=== PATIENT | male | born 1960 | race Hispanic/Latino ===

== ENCOUNTER 2018-04-22 06:53 | Inpatient (IN) | payer OTHER ==
[~2018-04-22] VITALS: Ht 177.8 cm; Wt 86.2 kg
[2018-04-22] VITALS (21 sets, daily range): BP systolic 130–182; BP diastolic 73–103
[2018-04-22 07:55] LABS: BASOPHILS % (AUTO) 0.5 % (0.0-5.0); EOSINOPHILS % (AUTO) 1.5 % (0.0-8.0); HEMATOCRIT 40.4 % (42-54); LYMPHOCYTES % (AUTO) 6.9 % (21.0-51.0); MEAN CORPUSCULAR HEMOGLOBIN 28.4 pg (27.0-33.0); MEAN CORPUSCULAR HGB CONC 32.5 g/dL (32.0-36.0); MEAN CORPUSCULAR VOLUME 87.3 fL (79-99); MONOCYTES % (AUTO) 7.3 % (3.0-13.0); NEUTROPHILS % (AUTO) 83.8 % (40.0-77.0); PLATELET COUNT (AUTO) 395 K/uL (130-400); RED BLOOD CELL COUNT(AUTO) 4.63 MIL/uL (4.50-6.20); RED CELL DISTRIBUTION WIDTH 13.4 % (11.0-15.5); WHITE BLOOD COUNT (AUTO) 18.1 K/uL (4.8-10.8)
[2018-04-22 08:01] LABS: POTASSIUM 3.4 mmol/L (3.5-5.1)
[2018-04-22 08:12] LABS: CREATININE 0.8 mg/dL (0.5-1.5)
[2018-04-22] MEDS ORDERED: SODIUM CHLORIDE 0.9% 1000ML 1,000 ML IV ONE (08:38)
[2018-04-22] MEDS ORDERED: ZOSYN 3.375GM+NS 50ML 50 ML IV ONE (08:39)
[2018-04-22] MEDS ORDERED: SODIUM CHLORIDE 0.9% 100 ML IV ONE (08:40)
[2018-04-22] MEDS ORDERED: INSULIN HUMULIN R 100 UNIT/ML 3ML ONE ×3 (08:40→17:07)
[2018-04-22] MEDS ORDERED: DEXTROSE 50%-WATER 50 ML DISP.SYRIN IV PRN (09:15)
[2018-04-22] MEDS ORDERED: HYDROCODONE/ACETAMINOPHEN 5/325 MG TAB PO PRN (09:15)
[2018-04-22] MEDS ORDERED: VANCOMYCIN PROTOCOL PER PHARMACY IV SCH (09:15)
[2018-04-22] MEDS: SODIUM CHLORIDE 0.9% 1000ML 1,000 ML IV SCH (09:15)
[2018-04-22] MEDS ORDERED: GLUCAGON 1MG KIT 1 MG ML IM PRN (09:15)
[2018-04-22] MEDS: ZOSYN 3.375GM+NS 50ML 50 ML IV SCH ×2 (09:15→17:02)
[2018-04-22] MEDS ORDERED: ACETAMINOPHEN 325 MG TAB PO PRN (12:15)
[2018-04-22] MEDS: INSULIN R PO SS1/2 SQ SCH ×3 (12:19→22:36)
[2018-04-22] MEDS ORDERED: COMPOUND IV REFRIGERATED 1 EACH IVSOLN MISC PRN (14:00)
[2018-04-22] MEDS: VANCOMYCIN 1.25 GM in SODIUM CHLORIDE 0.9% 250 ML IV SCH (14:43)
[2018-04-22] MEDS ORDERED: LIDOCAINE PF 2% 5ML ABBOJECT ONE (16:10)
[2018-04-22] MEDS ORDERED: MIDAZOLAM HCL 1 MG/ML 2ML VIAL ONE (16:10)
[2018-04-22] MEDS ORDERED: DEXAMETHASONE SOD PHOSPHATE 10MG/ML 1ML VIAL ONE (16:10)
[2018-04-22] MEDS ORDERED: ONDANSETRON HCL 4 MG/2 ML VIAL ONE (16:10)
[2018-04-22] MEDS ORDERED: PROPOFOL 10 MG/ML 20ML VIAL IV ONE (16:10)
[2018-04-22] MEDS ORDERED: ROCURONIUM 10MG/1ML SYR 10 MG/ML ML ONE (16:10)
[2018-04-22] MEDS ORDERED: FENTANYL CITRATE PF 50 MCG/1 ML 2ML VIAL ONE (16:10)
[2018-04-22] MEDS ORDERED: NEOSTIGMINE 5MG/5ML SYR IV ONE (16:10)
[2018-04-22] MEDS ORDERED: BACITRACIN 50,000 UNIT VIAL ONE (16:28)
[2018-04-22] MEDS ORDERED: GLYCOPYRROLATE 1 MG/5 ML SYRINGE ONE (16:44)
[2018-04-22] MEDS ORDERED: CLONIDINE HCL 0.1 MG TABLET PO PRN (18:45)
[2018-04-22] MEDS ORDERED: METOPROLOL TARTRATE 1 MG/ML 5ML VIAL IV PRN (18:45)
[2018-04-22] MEDS ORDERED: MORPHINE SULFATE 4 MG/1ML SYG IVP PRN (19:15)
[2018-04-22] MEDS: METOPROLOL TARTRATE 50 MG TAB PO SCH (22:31)
[2018-04-23] MEDS: ZOSYN 3.375GM+NS 50ML 50 ML IV SCH (01:42)
[2018-04-23] MEDS: SODIUM CHLORIDE 0.9% 1000ML 1,000 ML IV SCH ×2 (03:47→17:56)
[2018-04-23] MEDS: VANCOMYCIN 1.25 GM in SODIUM CHLORIDE 0.9% 250 ML IV SCH ×2 (03:47→14:14)
[2018-04-23 04:29] VITALS: BP 118/73
[2018-04-23 05:25] LABS: BASOPHILS % (AUTO) 0.7 % (0.0-5.0); EOSINOPHILS % (AUTO) 1.5 % (0.0-8.0); HEMATOCRIT 34.6 % (42-54); LYMPHOCYTES % (AUTO) 8.9 % (21.0-51.0); MEAN CORPUSCULAR HEMOGLOBIN 29.6 pg (27.0-33.0); MEAN CORPUSCULAR HGB CONC 34.2 g/dL (32.0-36.0); MEAN CORPUSCULAR VOLUME 86.7 fL (79-99); MONOCYTES % (AUTO) 8.6 % (3.0-13.0); NEUTROPHILS % (AUTO) 80.3 % (40.0-77.0); PLATELET COUNT (AUTO) 397 K/uL (130-400); RED BLOOD CELL COUNT(AUTO) 3.99 MIL/uL (4.50-6.20); RED CELL DISTRIBUTION WIDTH 13.3 % (11.0-15.5); WHITE BLOOD COUNT (AUTO) 21.2 K/uL (4.8-10.8)
[2018-04-23 05:35] LABS: ALBUMIN 1.7 g/dL (3.5-5.0); BILIRUBIN,TOTAL 1.1 mg/dL (0.2-1.0); CREATININE 1.9 mg/dL (0.5-1.5); POTASSIUM 3.9 mmol/L (3.5-5.1); TOTAL PROTEIN, SERUM 6.1 g/dL (6.0-8.3)
[2018-04-23] MEDS: INSULIN R PO SS1/2 SQ SCH ×4 (07:04→21:03)
[2018-04-23 07:51] VITALS: BP 133/68
[2018-04-23 11:38] VITALS: BP 119/62
[2018-04-23] MEDS: METOPROLOL TARTRATE 50 MG TAB PO SCH ×2 (12:35→20:54)
[2018-04-23] MEDS: PANTOPRAZOLE SODIUM 40 MG TABLET.DR PO SCH (12:35)
[2018-04-23] MEDS: ENOXAPARIN SODIUM 40 MG/0.4 ML SYRINGE SQ SCH (12:36)
[2018-04-23 16:26] VITALS: BP 129/79
[2018-04-23 19:57] VITALS: BP 130/76
[2018-04-23 23:02] VITALS: BP 132/78
[2018-04-24 01:56] LABS: BASOPHILS % (AUTO) 0.8 % (0.0-5.0); EOSINOPHILS % (AUTO) 3.4 % (0.0-8.0); MEAN CORPUSCULAR HEMOGLOBIN 28.4 pg (27.0-33.0); MEAN CORPUSCULAR HGB CONC 32.9 g/dL (32.0-36.0); MEAN CORPUSCULAR VOLUME 86.3 fL (79-99); MONOCYTES % (AUTO) 7.9 % (3.0-13.0); NEUTROPHILS % (AUTO) 78.9 % (40.0-77.0); PLATELET COUNT (AUTO) 359 K/uL (130-400); RED BLOOD CELL COUNT(AUTO) 3.94 MIL/uL (4.50-6.20); RED CELL DISTRIBUTION WIDTH 13.1 % (11.0-15.5); WHITE BLOOD COUNT (AUTO) 17.9 K/uL (4.8-10.8)
[2018-04-24 02:21] LABS: ALBUMIN 1.6 g/dL (3.5-5.0); BILIRUBIN,TOTAL 0.6 mg/dL (0.2-1.0); CREATININE 1.8 mg/dL (0.5-1.5); POTASSIUM 3.5 mmol/L (3.5-5.1); TOTAL PROTEIN, SERUM 6.1 g/dL (6.0-8.3)
[2018-04-24] MEDS: VANCOMYCIN 1.25 GM in SODIUM CHLORIDE 0.9% 250 ML IV SCH ×2 (03:18→13:49)
[2018-04-24 03:30] VITALS: BP 124/79
[2018-04-24 03:54] LABS: APPEARANCE,URINE Clear (CLEAR); BILIRUBIN,URINE Negative (NEGATIVE); COLOR,URINE Yellow (YELLOW); GLUCOSE, URINE (UA) >=1000 mg/dL (NEGATIVE); KETONES,URINE Trace mg/dL (NEGATIVE); LEUKOCYTE ESTERASE ,URINE Small (NEGATIVE); NITRATE,URINE Negative (NEGATIVE); OCCULT BLOOD,URINE Negative (NEGATIVE); PROTEIN,URINE Trace (NEGATIVE)
[2018-04-24 04:19] LABS: RBC,URINE 0-1 /HPF (0-1)
[2018-04-24 04:20] LABS: BACTERIA,URINE Few /HPF (None Seen); SQUAMOUS EPITHELIAL CELL,UR 0-2 /HPF (0-2)
[2018-04-24] MEDS: INSULIN R PO SS1/2 SQ SCH (05:43)
[2018-04-24 06:24] LABS: HEMOGLOBIN A1C 10.6 % (4.0-6.0)
[2018-04-24] MEDS: INSULIN HUMULIN R 100 UNIT/ML 3ML SQ SCH ×4 (06:40→21:01)
[2018-04-24 07:30] VITALS: BP 127/78
[2018-04-24] MEDS: METOPROLOL TARTRATE 50 MG TAB PO SCH ×2 (08:58→20:42)
[2018-04-24] MEDS: PANTOPRAZOLE SODIUM 40 MG TABLET.DR PO SCH (08:58)
[2018-04-24] MEDS: ENOXAPARIN SODIUM 40 MG/0.4 ML SYRINGE SQ SCH (08:58)
[2018-04-24 11:00] VITALS: BP 131/76
[2018-04-24] MEDS: SODIUM CHLORIDE 0.9% 1000ML 1,000 ML IV SCH (11:15)
[2018-04-24 16:00] VITALS: BP 133/74
[2018-04-24 20:28] VITALS: BP 128/71
[2018-04-25 00:03] VITALS: BP 131/79
[2018-04-25] MEDS: VANCOMYCIN 1.25 GM in SODIUM CHLORIDE 0.9% 250 ML IV SCH ×2 (02:00→14:17)
[2018-04-25] MEDS: SODIUM CHLORIDE 0.9% 1000ML 1,000 ML IV SCH (03:55)
[2018-04-25 05:05] VITALS: BP 138/82
[2018-04-25] MEDS: INSULIN HUMULIN R 100 UNIT/ML 3ML SQ SCH ×4 (07:15→20:19)
[2018-04-25 07:55] VITALS: BP 143/85
[2018-04-25] MEDS: PANTOPRAZOLE SODIUM 40 MG TABLET.DR PO SCH (09:18)
[2018-04-25] MEDS: ENOXAPARIN SODIUM 40 MG/0.4 ML SYRINGE SQ SCH (09:18)
[2018-04-25] MEDS: METOPROLOL TARTRATE 50 MG TAB PO SCH ×2 (09:19→20:14)
[2018-04-25] MEDS ORDERED: PANT40TA PO (09:51)
[2018-04-25] MEDS ORDERED: METO50 PO (09:51)
[2018-04-25] MEDS ORDERED: METF500S7 PO (09:52)
[2018-04-25 11:10] LABS: CREATININE 1.7 mg/dL (0.5-1.5); POTASSIUM 3.5 mmol/L (3.5-5.1)
[2018-04-25 13:13] VITALS: BP 120/79
[2018-04-25 16:35] VITALS: BP 135/80
[2018-04-25] MEDS: METFORMIN HCL 500 MG TABLET PO SCH (17:00)
[2018-04-25 19:38] VITALS: BP 126/77
[2018-04-26 00:12] VITALS: BP 127/77
[2018-04-26] MEDS: VANCOMYCIN 1.25 GM in SODIUM CHLORIDE 0.9% 250 ML IV SCH (01:51)
[2018-04-26 03:32] VITALS: BP 144/87
[2018-04-26 04:29] LABS: BASOPHILS % (AUTO) 0.8 % (0.0-5.0); EOSINOPHILS % (AUTO) 6.4 % (0.0-8.0); HEMATOCRIT 34.1 % (42-54); LYMPHOCYTES % (AUTO) 14.9 % (21.0-51.0); MEAN CORPUSCULAR HEMOGLOBIN 29.3 pg (27.0-33.0); MEAN CORPUSCULAR HGB CONC 34.2 g/dL (32.0-36.0); MEAN CORPUSCULAR VOLUME 85.9 fL (79-99); MONOCYTES % (AUTO) 7.8 % (3.0-13.0); NEUTROPHILS % (AUTO) 70.1 % (40.0-77.0); PLATELET COUNT (AUTO) 365 K/uL (130-400); RED BLOOD CELL COUNT(AUTO) 3.97 MIL/uL (4.50-6.20); RED CELL DISTRIBUTION WIDTH 13.4 % (11.0-15.5); WHITE BLOOD COUNT (AUTO) 11.1 K/uL (4.8-10.8)
[2018-04-26 04:36] LABS: CREATININE 1.5 mg/dL (0.5-1.5); POTASSIUM 3.3 mmol/L (3.5-5.1)
[2018-04-26] MEDS: INSULIN HUMULIN R 100 UNIT/ML 3ML SQ SCH (05:56)
[2018-04-26] MEDS: METFORMIN HCL 500 MG TABLET PO SCH (07:50)
[2018-04-26 08:08] VITALS: BP 138/80
[2018-04-26] MEDS: METOPROLOL TARTRATE 50 MG TAB PO SCH (08:57)
[2018-04-26] MEDS: PANTOPRAZOLE SODIUM 40 MG TABLET.DR PO SCH (08:57)
[2018-04-26] MEDS: ENOXAPARIN SODIUM 40 MG/0.4 ML SYRINGE SQ SCH (08:59)
[2018-04-26] MEDS ORDERED: POTASSIUM CHLORIDE 10% ELIXIR 20 MEQ/15 ML UDCUP PO SCH (09:30)
== END 2018-04-26 10:49 | disposition home or self-care (01) | DRG 854 ==
LOC: EDH 06:53 → EDHIP 06:54 → 4BH 09:38 → 4CH 04-25 11:34 → 4BH 04-25 18:29
PROVIDERS: ADMIT Hospitalist; ATTEND Hospitalist
PROC: 0J990ZZ Drainage of Buttock Subcutaneous Tissue and Fascia, Open Approach (ICD-10-PCS; principal; 2018-04-22 16:29)
DX: A41.9 Sepsis, unspecified organism (principal); L02.31 Cutaneous abscess of buttock; N17.9 Acute kidney failure, unspecified; L03.317 Cellulitis of buttock; F17.210 Nicotine dependence, cigarettes, uncomplicated; E11.65 Type 2 diabetes mellitus with hyperglycemia; Z91.19 Patient's noncompliance with other medical treatment and regimen; Z79.899 Other long term (current) drug therapy; Z83.3 Family history of diabetes mellitus
CPT/HCPCS: 36415; 71045; 80048; 80053; 80202; 81001; 82948; 83036; 83605; 85025; 87040; 87070; 87076; 87077; 87186; 87205; 97039; A4344; A6266; J1100; J1650; J1815; J2001; J2250; J2405; J2543; J2704; J2710; J3010; J3370; J3490; J7030; Q2038

== ENCOUNTER 2023-06-16 10:09 | Emergency (ER) | payer OTHER ==
[~2023-06-16] VITALS: Ht 177.8 cm; Wt 93.0 kg
[~2023-06-16 10:09] MED LIST: METF500S9 PO; METO50 PO; PANT40TA PO
[2023-06-16 12:08] LABS: HEMATOCRIT 56.4 % (42-54); MEAN CORPUSCULAR VOLUME 88.1 fL (79-99); RED BLOOD CELL COUNT(AUTO) 6.4 MIL/uL (4.50-6.20); RED CELL DISTRIBUTION WIDTH 13.1 % (11.0-15.5); WHITE BLOOD COUNT (AUTO) 10.5 K/uL (4.8-10.8)
[2023-06-16 12:16] LABS: CREATININE 1.4 mg/dL (0.5-1.5); POTASSIUM 4.8 mmol/L (3.5-5.1)
[2023-06-16] MEDS ORDERED: ONDANSETRON ODT 4MG TAB SL ONE (13:00)
[2023-06-16] MEDS ORDERED: ONDA4TAB10 PO (13:54)
[2023-06-16 14:04] VITALS: BP 134/82; PULSE 88; RESP 18; O2SAT 99
== END 2023-06-16 14:07 | disposition home or self-care (01) ==
LOC: EDH 10:09
DX: A08.4 Viral intestinal infection, unspecified (principal); R11.2 Nausea with vomiting, unspecified; E86.0 Dehydration; I10 Essential (primary) hypertension; E11.9 Type 2 diabetes mellitus without complications; Z79.899 Other long term (current) drug therapy
CPT/HCPCS: 36415; 80048; 85027

== ENCOUNTER → 2025-03-24 | Outpatient (CLI) | payer OTHER, MEDICARE ==
[~2025-03-24] MED LIST changes: +ONDA-243 PO
[2025-03-24] MEDS: REGADENOSON 0.4 MG/5 ML PF SYG IVP ONE (12:31)
--- NOTE | 2025-03-25 15:17 | HMCSR ---
APPROVED REPORT Height: 5 ft 10in Weight: 220 lbs TEST INDICATIONS Hypertension/HDD The imaging protocol used to acquire images was Rest Tc-99m/stress Tc-99m 1 day Consent: The procedure was explained and understood by the patient. Informerd consent was witnessed Eli Elias Rn First, low dose rest was performed then high dose stress. RESTING DATA: The resting ekg shows: NSR Rest SPECT myocardial perfusion imaging was performed in supine position minutes following the intra venous injection of 11 mCi of Tc-99 Sestamibi. Time of rest injection: Date: 03/24/2025 Time of rest imaging: Date: 03/24/2025 PHARMACOLOGIC STRESS: Pharmacologic stress test was performed by injecting regadenoson 0.4 mg IV push followed by the intra venous injection of 30 mCi of Tc-99 Sestamibi. Time of stress injection: Date: 03/24/2025 Time of stress imaging: Date: 03/24/2025 Heart Rate at time of stress injection: 100 bpm. The images were gated to evaluate regional wall motion and calculate left ventricular ejection fracti on. STRESS DETAILS Reason for Termination: Infusion complete Stress Symptoms: Dyspnea Max HR Achieved: 118 bpm % of APMHR Achieved: 90 Max Blood Pressure: 141/88 mmHg Stress ECG: NSR Study quality was good. Lung uptake was Normal. LEFT VENTRICLE Size: The left ventricular size is normal. Systolic Function:The left ventricular systolic function is normal. Wall Motion: Cannot exclude regional wall motion abnormalities. The left ventricular ejection fraction was calculated to be 65%.TID = 1.00. LV PERFUSION There is decreased radiotracer uptake noted of moderate size and degree involving the inferior segmen ts mainly seen in the short axis views. Defect is actually more prominent on the rest images compare d to the stress images. This may be more consistent with artifact. Conclusion Probably normal myocardial perfusion scan with fixed basal and mid inferior defect likely related to artifact No evidence of reversible ischemia Preserved ejection fraction and wall motion with normal transient ischemic dilatation ratio Low risk scan
== END | disposition home or self-care (01) ==
LOC: RAH 08:54
PROVIDERS: ATTEND Internal Medicine Cardiovascular Disease
DX: I10 Essential (primary) hypertension (principal); I25.10 Atherosclerotic heart disease of native coronary artery without angina pectoris
CPT/HCPCS: 78452; 93017; J2785; A9500 ×2